=== PATIENT | female | born 1970 | race Caucasian/White ===

== ENCOUNTER 2017-02-11 20:29 | Emergency (ER) | payer BC ==
[2017-02-11 20:35] VITALS: BP 146/80; PULSE 68; RESP 18; TEMP 99
[2017-02-11] MEDS ORDERED: LORazepam 1 MG TAB PO STA (20:47)
--- NOTE | 2017-02-11 20:47 | ED ---
General Adult HPI - General Chief complaint: Anxiety Stated complaint: Anxiety Time Seen by Provider: 02/11/17 20:36 Source: patient, family, RN notes reviewed Mode of arrival: ambulatory Limitations: no limitations - History of Present Illness Initial comments: 46-year-old female presents to the emergency room chief complaint of feeling anxious. Patient states she was sitting at dinner and all of a sudden she got just a shock to her head that came and went quickly less than a second. Patient states afterwards she just felt very anxious she felt weird to her body no specific that just everything fell off. she states the top of her head feels like a mild throb. Patient denies any blurred vision any vomiting she states she feel nauseous when she was most anxious. Patient states isn't have a history of anxiety but this just feels different so she was concerned. She denies any chest pain or shortness of breath with this. She states that she is not currently having any other symptoms. Patient denies any recent fever, chills , shortness of breath, chest pain, back pain, abdominal pain, nausea vomiting, numbness or tingling, dysuria or hematuria, constipation or diarrhea, visual changes, or any other current symptoms. - Related Data Home Medications Medication Instructions Recorded Confirmed Atorvastatin [Lipitor] 10 mg PO HS 02/11/17 02/11/17 Metoprolol Tartrate [Lopressor] 100 mg PO BID 02/11/17 02/11/17 Allergies Allergy/AdvReac Type Severity Reaction Status Date / Time shellfish derived [Shellfish] Allergy Tongue Verified 02/11/17 21:05 Swelling Review of Systems ROS Statement: Those systems with pertinent positive or pertinent negative responses have been documented in the HPI. ROS Other: All systems not noted in ROS Statement are negative. Past Medical History Past Medical History: Hyperlipidemia, Hypertension History of Any Multi-Drug Resistant Organisms: None Reported Past Surgical History: Bariatric Surgery, Orthopedic Surgery, Tonsillectomy Past Psychological History: No Psychological Hx Reported Smoking Status: Never smoker Past Alcohol Use History: None Reported Past Drug Use History: None Reported General Exam - General Exam Comments Initial Comments: General: The patient is awake and alert, in no distress, and does not appear acutely ill. Eye: Pupils are equal, round and reactive to light, extra-ocular movements are intact; there is normal conjunctiva bilaterally. No signs of icterus. Ears, nose, mouth and throat: There are moist mucous membranes. Neck: The neck is supple, there is no tenderness. Cardiovascular: There is a regular rate and rhythm. No murmur, rub or gallop is appreciated. Respiratory: Lungs are clear to auscultation, respirations are non-labored, breath sounds are equal. No wheezes, stridor, rales, or rhonchi. Gastrointestinal: Soft, non-distended, non-tender abdomen without masses or organomegaly noted. There is no rebound or guarding present. No CVA tenderness. Bowel sounds are unremarkable. Back: There is no tenderness to palpation in the midline. There is no obvious deformity. No rashes noted. Musculoskeletal: Normal ROM, no tenderness, There is no pedal edema. There is no calf tenderness or swelling. Sensation intact. Pulses equal bilaterally 2+. Neurological: CN II-XII intact, There are no obvious motor or sensory deficits. Coordination appears grossly intact. Speech is normal. Skin: Skin is warm and dry and no rashes or lesions are noted. Psychiatric: Cooperative, appropriate mood & affect, normal judgment. Limitations: no limitations Course Vital Signs 02/11/17 20:32 Temperature 99 F Pulse Rate 68 Respiratory 18 Rate Blood Pressure 146/80 Medical Decision Making - Medical Decision Making 46 year old female presents for anxiety. At this time we'll give the patient Ativan and she is feeling 100% better. Her symptoms have resolved. This and she states she's been better she's about the doctors see her doctor. This patient is symptom-free. This time her symptoms are consistent with anxiety. At this time the patient will be discharged home. Disposition Clinical Impression: Acute anxiety Disposition: HOME SELF-CARE Condition: Stable Instructions: Generalized Anxiety Disorder (ED) Additional Instructions: Please use medication as discussed. Please follow up with family doctor if symptoms have not improved over the next two days. Please return to the emergency room if your symptoms increase or worsen or for any other concerns. Referrals: Sarahi Daugherty MD [STAFF PHYSICIAN] - 1-2 days Time of Disposition: 21:54
[2017-02-12 03:31] LABS: Glucose,Whole Blood 156 mg/dL (75-99)
== END 2017-02-11 22:10 | disposition home or self-care (01) ==
LOC: EC 20:29
DX: F41.9 Anxiety disorder, unspecified (principal); E78.5 Hyperlipidemia, unspecified; I10 Essential (primary) hypertension; Z79.899 Other long term (current) drug therapy; Z91.013 Allergy to seafood
CPT/HCPCS: 36415; 99283

== ENCOUNTER 2020-08-20 06:33 | Emergency (ER) | payer BC ==
[2020-08-20 06:47] VITALS: RESP 18; TEMP 97.7
[2020-08-20] MEDS ORDERED: SODIUM CHLORIDE 0.9% 500 ML 500 ML IV STA (07:03)
--- NOTE | 2020-08-20 07:08 | ED ---
General Adult HPI - General Chief complaint: Arrhythmia/Palpitations Stated complaint: Heart Racing Time Seen by Provider: 08/20/20 06:49 Source: patient, RN notes reviewed Mode of arrival: ambulatory Limitations: no limitations - History of Present Illness Initial comments: 49-year-old female with a history of hyperlipidemia, hypertension presents to [facility] emergency room for chief complaint of "racing heart." Patient reports that she woke up today with a feeling that her heart was racing. States this lasted for about 5 minutes. States she felt like she couldn't catch her breath throughout this episode. She states that symptom have since resolved. She denies any chest pain associated with this. States that in the past she has felt like her heart sometimes skips a beat but has never had it lasts for 5 minutes. Patient reports she does take metoprolol twice daily for her blood pressure and forgot to take her morning dose yesterday which is unusual for her.Patient has no other complaints at this time including shortness of breath, chest pain, abdominal pain, nausea or vomiting, headache, or visual changes. - Related Data Home Medications Medication Instructions Recorded Confirmed Atorvastatin [Lipitor] 10 mg PO HS 02/11/17 08/20/20 Metoprolol Tartrate [Lopressor] 100 mg PO BID 02/11/17 08/20/20 ALPRAZolam [Xanax] 0.25 mg PO Q8H PRN 08/20/20 08/20/20 Allergies Allergy/AdvReac Type Severity Reaction Status Date / Time shellfish derived [Shellfish] Allergy Tongue Verified 08/20/20 08:19 Swelling Review of Systems ROS Statement: Those systems with pertinent positive or pertinent negative responses have been documented in the HPI. ROS Other: All systems not noted in ROS Statement are negative. Past Medical History Past Medical History: Hyperlipidemia, Hypertension History of Any Multi-Drug Resistant Organisms: None Reported Past Surgical History: Orthopedic Surgery, Tonsillectomy Additional Past Surgical History / Comment(s): bowel surgery as , left sh oulder surgery Past Psychological History: No Psychological Hx Reported Smoking Status: Never smoker Past Alcohol Use History: None Reported Past Drug Use History: None Reported General Exam Limitations: no limitations General appearance: alert, in no apparent distress Head exam: Present: atraumatic, normocephalic, normal inspection Eye exam: Present: normal appearance, PERRL, EOMI. Absent: scleral icterus, conjunctival injection, periorbital swelling ENT exam: Present: normal exam, mucous membranes moist Neck exam: Present: normal inspection, full ROM. Absent: tenderness, meningismus, lymphadenopathy Respiratory exam: Present: normal lung sounds bilaterally. Absent: respiratory distress, wheezes, rales, rhonchi, stridor Cardiovascular Exam: Present: regular rate, normal rhythm, normal heart sounds. Absent: systolic murmur, diastolic murmur, rubs, gallop, clicks GI/Abdominal exam: Present: soft, normal bowel sounds. Absent: distended, tenderness, guarding, rebound, rigid Course Vital Signs 08/20/20 06:42 Temperature 97.7 F Pulse Rate 72 Respiratory 18 Rate Blood Pressure 141/73 O2 Sat by Pulse 97 Oximetry EKG Findings - EKG Comments: EKG Findings:: Sinus rhythm, ventricular rate 77, MO interval 140, QTC 448 Medical Decision Making - Medical Decision Making Vitals are stable. Patient is well appearing. EKG obtained which revealed a normal sinus rhythm with a ventricular rate of 69. Cardiac monitoring established CBC CMP unremarkable. Magnesium normal. Troponin negative. Chest x-ray shows a possible pulmonary nodule, recommending follow-up. At this time patient is stable. We will refer her to primary care and cardiology. She may need a Holter monitor. She has any worsening symptoms in the meantime she'll return here to the emergency room. - Lab Data Result diagrams: 08/20/20 07:09 08/20/20 07:09 Lab Results 08/20/20 08/20/20 08/20/20 Range/Units 07:09 07:09 07:09 WBC 9.1 (3.8-10.6) k/uL RBC 4.86 (3.80-5.40) m/uL Hgb 13.0 (11.4-16.0) gm/dL Hct 37.7 (34.0-46.0) % MCV 77.5 L (80.0-100.0) fL MCH 26.7 (25.0-35.0) pg MCHC 34.4 (31.0-37.0) g/dL RDW 14.1 (11.5-15.5) % Plt Count 344 (150-450) k/uL MPV 6.6 Neutrophils % 60 % Lymphocytes % 30 % Monocytes % 4 % Eosinophils % 5 % Basophils % 1 % Neutrophils # 5.5 (1.3-7.7) k/uL Lymphocytes # 2.7 (1.0-4.8) k/uL Monocytes # 0.4 (0-1.0) k/uL Eosinophils # 0.4 (0-0.7) k/uL Basophils # 0.1 (0-0.2) k/uL PT 9.7 (9.0-12.0) sec INR 0.9 (<1.2) APTT 22.6 (22.0-30.0) sec Sodium 135 L (137-145) mmol/L Potassium 3.8 (3.5-5.1) mmol/L Chloride 105 (98-107) mmol/L Carbon Dioxide 22 (22-30) mmol/L Anion Gap 8 mmol/L BUN 12 (7-17) mg/dL Creatinine 0.71 (0.52-1.04) mg/dL Est GFR (CKD-EPI)AfAm >90 (>60 ml/min/1.73 sqM) Est GFR (CKD-EPI)NonAf >90 (>60 ml/min/1.73 sqM) Glucose 123 H (74-99) mg/dL Calcium 9.3 (8.4-10.2) mg/dL Magnesium 1.7 (1.6-2.3) mg/dL Total Bilirubin 0.7 (0.2-1.3) mg/dL AST 23 (14-36) U/L ALT 16 (4-34) U/L Alkaline Phosphatase 137 H (38-126) U/L Troponin I (0.000-0.034) ng/mL Total Protein 7.2 (6.3-8.2) g/dL Albumin 3.9 (3.5-5.0) g/dL 08/20/20 Range/Units 07:09 WBC (3.8-10.6) k/uL RBC (3.80-5.40) m/uL Hgb (11.4-16.0) gm/dL Hct (34.0-46.0) % MCV (80.0-100.0) fL MCH (25.0-35.0) pg MCHC (31.0-37.0) g/dL RDW (11.5-15.5) % Plt Count (150-450) k/uL MPV Neutrophils % % Lymphocytes % % Monocytes % % Eosinophils % % Basophils % % Neutrophils # (1.3-7.7) k/uL Lymphocytes # (1.0-4.8) k/uL Monocytes # (0-1.0) k/uL Eosinophils # (0-0.7) k/uL Basophils # (0-0.2) k/uL PT (9.0-12.0) sec INR (<1.2) APTT (22.0-30.0) sec Sodium (137-145) mmol/L Potassium (3.5-5.1) mmol/L Chloride (98-107) mmol/L Carbon Dioxide (22-30) mmol/L Anion Gap mmol/L BUN (7-17) mg/dL Creatinine (0.52-1.04) mg/dL Est GFR (CKD-EPI)AfAm (>60 ml/min/1.73 sqM) Est GFR (CKD-EPI)NonAf (>60 ml/min/1.73 sqM) Glucose (74-99) mg/dL Calcium (8.4-10.2) mg/dL Magnesium (1.6-2.3) mg/dL Total Bilirubin (0.2-1.3) mg/dL AST (14-36) U/L ALT (4-34) U/L Alkaline Phosphatase (38-126) U/L Troponin I <0.012 (0.000-0.034) ng/mL Total Protein (6.3-8.2) g/dL Albumin (3.5-5.0) g/dL Disposition Clinical Impression: Palpitations Disposition: HOME SELF-CARE Condition: Good Instructions (If sedation given, give patient instructions): Heart Palpitations (ED) Additional Instructions: Please follow up with primary care and cardiology. You may benefit from a Holter monitor. Return to the emergency room for any worsening symptoms. Is patient prescribed a controlled substance at d/c from ED?: No Referrals: Arnaldo Mansfield DO [Primary Care Provider] - 1-2 days Ricky Daniels MD [STAFF PHYSICIAN] - 1-2 days Time of Disposition: 08:32
[2020-08-20 07:27] LABS: Basophils # (A) 0.1 k/uL (0-0.2); Basophils % (A) 1 %; Eosinophils # (A) 0.4 k/uL (0-0.7); Eosinophils % (A) 5 %; HCT 37.7 % (34.0-46.0); Lymphocytes # (A) 2.7 k/uL (1.0-4.8); Lymphocytes % (A) 30 %; MCH 26.7 pg (25.0-35.0); MCHC 34.4 g/dL (31.0-37.0); MCV 77.5 fL (80.0-100.0); Mean Platelet Volume 6.6; Monocytes # (A) 0.4 k/uL (0-1.0); Monocytes % (A) 4 %; Neutrophils # (A) 5.5 k/uL (1.3-7.7); Neutrophils % (A) 60 %; Platelet Count 344 k/uL (150-450); RBC 4.86 m/uL (3.80-5.40); RDW 14.1 % (11.5-15.5); WBC 9.1 k/uL (3.8-10.6)
[2020-08-20 07:35] LABS: ALT 16 U/L (4-34); AST 23 U/L (14-36); African American GFR (CKD) >90 (>60 ml/min/1.73 sqM); Albumin 3.9 g/dL (3.5-5.0); Alkaline Phosphatase 137 U/L (38-126); Anion Gap 8 mmol/L; Blood Urea Nitrogen 12 mg/dL (7-17); Calcium 9.3 mg/dL (8.4-10.2); Carbon Dioxide 22 mmol/L (22-30); Chloride 105 mmol/L (98-107); Glucose 123 mg/dL (74-99); Magnesium 1.7 mg/dL (1.6-2.3); Non-African American GFR(CKD) >90 (>60 ml/min/1.73 sqM); Potassium 3.8 mmol/L (3.5-5.1); Sodium 135 mmol/L (137-145); Total Bilirubin 0.7 mg/dL (0.2-1.3); Total Protein 7.2 g/dL (6.3-8.2)
[2020-08-20 07:42] LABS: INR 0.9 (<1.2); Partial Thromboplastin Time 22.6 sec (22.0-30.0); Prothrombin Time 9.7 sec (9.0-12.0)
--- NOTE | 2020-08-20 07:50 | XR ---
EXAMINATION TYPE: XR chest 2V DATE OF EXAM: 08/20/2020 COMPARISON: None HISTORY: 49-year-old female with chest pain TECHNIQUE: PA and lateral views FINDINGS: The cardiomediastinal silhouette, aorta, and pulmonary vasculature are within normal limits. Tiny vag ue density in the left midlung which represents summation artifact or tiny pulmonary nodule. Radiogra phic follow-up can be performed. Otherwise, no consolidation or pleural effusion. IMPRESSION: 1. No acute cardiopulmonary process. 2. Either summation artifact or a tiny pulmonary nodule in the periphery of the left mid lung. Follow -up radiograph in 4-6 weeks to reassess.
[2020-08-20 09:15] VITALS: BP 152/93; PULSE 80
== END 2020-08-20 09:12 | disposition home or self-care (01) ==
LOC: EC 06:33
DX: R00.2 Palpitations (principal); R00.0 Tachycardia, unspecified; I10 Essential (primary) hypertension; E78.5 Hyperlipidemia, unspecified; Z79.899 Other long term (current) drug therapy
CPT/HCPCS: 36415; 71046; 80053; 83735; 84484; 85025; 85610; 85730; 96360; 99285

== ENCOUNTER → 2020-09-10 | Outpatient (CLI) | payer BC ==
--- NOTE | 2020-09-14 08:50 | HM ---
This is a report on the 25 DCG of Xochitl Nieves Baseline EKG showed sinus rhythm. Patient remained in sinus rhythm with an average heart rate of about 60 to. The minimal rate is 42 and maximum heart rate is 118. Patient had rare PVCs and occasional APCs. There is one episode of nonsustained SVT consisting of 4 beats. Patient did not maintain a diary. Patient's markers were associated with sinus rhythm. Final impression #1. Sinus rhythm. #2. Sinus tachycardia #3. Occasional APCs 11 brief episode of SVT consisting of 5 beats. #4. Rare PVCs. #5. Patient's markers are associated with sinus rhythm. Patient did not maintain a diary MTDD
== END | disposition home or self-care (01) ==
LOC: RADECHMAIN 11:43
PROVIDERS: ATTEND Family Medicine
DX: R00.0 Tachycardia, unspecified (principal); I49.1 Atrial premature depolarization
CPT/HCPCS: 93225; 93226

== ENCOUNTER → 2023-05-21 | Outpatient (CLI) | payer OTHER ==
--- NOTE | 2023-05-21 11:34 | XR ---
EXAMINATION TYPE: XR knee complete LT DATE OF EXAM: 05/21/2023 CLINICAL HISTORY: Slip and fall injury TECHNIQUE: Three views of the left knee are obtained. COMPARISON: None. FINDINGS: There is no acute fracture/dislocation evident in left knee. [id number] tricompartme nt joint space loss. There is mild spurring patellofemoral compartment. The overlying soft tissue ap pears unremarkable. IMPRESSION: There is no acute fracture or dislocation in the left knee.
--- NOTE | 2023-05-21 11:41 | XR ---
EXAMINATION TYPE: XR wrist complete RT DATE OF EXAM: 05/21/2023 CLINICAL HISTORY: Pain after slip and fall injury TECHNIQUE: Frontal, lateral and oblique images of the right wrist are obtained. Fourth scaphoid view was performed. COMPARISON: None FINDINGS: There is no acute fracture/dislocation evident in the right wrist. The joint spaces in th e right wrist appear within normal limits. The overlying soft tissue appears unremarkable. IMPRESSION: There is no acute fracture or dislocation in the right wrist.
== END | disposition home or self-care (01) ==
LOC: RADXRMAIN 10:36
PROVIDERS: ATTEND Emergency Medicine
DX: S80.02XD Contusion of left knee, subsequent encounter (principal); S60.211A Contusion of right wrist, initial encounter